=== PATIENT | male | born 1930 | race Caucasian/White ===

== ENCOUNTER 2018-07-19 12:41 | Inpatient (IN) ==
[2018-07-19] MEDS ORDERED: Pantoprazole Inj 40 MG Vial IV.PUSH ONE (13:15)
[2018-07-19 13:45] LABS: Eos % (Auto) 0.1 % (0.0-4.0); Hemoglobin 8.2 gm/dL (13.0-17.0); Lymph # (Auto) 1.1 th/mm3 (1.0-4.8); Lymph % (Auto) 5.1 % (9.0-44.0); Mean Corpuscular HGB Conc 32.9 % (32.0-36.0); Mean Corpuscular Volume 100.2 fL (80.0-100.0); Mean Platelet Volume 8.3 fL (7.0-11.0); Mono # (Auto) 1.4 th/mm3 (0.0-0.9); Mono % (Auto) 6.7 % (0.0-8.0); Neut % (Auto) 88.1 % (16.0-70.0); Platelet Count 206 th/mm3 (150-450); Red Blood Count 2.49 mil/mm3 (4.50-5.90); Red Cell Distribution Width 13.6 % (11.6-17.2); White Blood Count 20.5 th/mm3 (4.0-11.0)
--- NOTE | 2018-07-19 13:46 | CT ---
EXAM DATE: 07/19/2018 1:41 PM EDT AGE/SEX: 88 years / Male INDICATIONS: Vomiting blood blood in stool fall today CLINICAL DATA: This is the patient's initial encounter. Patient reports that signs and symptoms have been present for 1 day and indicates a pain score of 0/10. MEDICAL/SURGICAL HISTORY: . colitis None. RADIATION DOSE: 5.14 CTDI (mGy) COMPARISON: No prior exams available for comparison. TECHNIQUE: Multiple contiguous axial images were obtained through the abdomen. Images were obtained using multiple row detector helical technique. Using automated exposure control and adjustment of the mA and/or kV according to patient size, radiation dose was kept as low as reasonably achievable to o btain optimal diagnostic quality images. DICOM format image data is available electronically for rev iew and comparison. FINDINGS: Lower Lungs: The visualized lower lungs are clear. Liver: The liver has a homogeneous density without space-occupying lesion. There is no dilation of th e biliary tree. Spleen: Homogeneous density without enlargement. Pancreas: Unremarkable without mass or calcification. Kidneys: Normal in size and shape. No evidence of mass or hydronephrosis. Small stone mid pole left kidney. Adrenal Glands: Unremarkable. Aorta: The aorta and proximal iliac vessels are grossly unremarkable without aneurysmal dilation. A therosclerotic disease without aneurysm Bowel/Mesentery: Sigmoid diverticulosis without evidence of mass. Abdominal Wall: Intact. Retroperitoneum: No evidence of adenopathy in the retrocrural, para-aortic, or deep pelvic regions. Bladder: Contours are smooth. Reproductive Organs: No abnormal masses or calcifications seen. Inguinal: The inguinal region is unremarkable without evidence of adenopathy. Bony Structures: Unremarkable. CONCLUSION: 1. Sigmoid diverticulosis. No etiology for hematochezia identified. Electronically signed by: Juilo Cesar Still MD 07/19/2018 1:45 PM EDT
[2018-07-19] MEDS: Octreotide Inj 500 MCG in Sodium Chlor 0.9% Inj 500 ML IV.CONT SCH (13:52)
[2018-07-19] MEDS ORDERED: Ciprofloxacin 400 MG/200 ML 400 MG/200 ML PIGGYBACK IV.SIG ONE (13:53)
[2018-07-19 14:04] LABS: Activated Partial Thrombo Time 18.5 sec (24.3-30.1); Prothrombin Time 10.6 sec (9.8-11.6)
[2018-07-19 14:07] LABS: Alanine Aminotransferase 17 U/L (12-78); Albumin 2.6 g/dL (3.4-5.0); Anion Gap 11 meq/L (5-15); Aspartate Aminotransferase 19 U/L (15-37); Blood Urea Nitrogen 77 mg/dL (7-18); Calcium 7.6 mg/dL (8.5-10.1); Carbon Dioxide 22.5 meq/L (21.0-32.0); Chloride 111 meq/L (98-107); Glomerular Filtration Rate 37 mL/min (>89); Glucose,Random 124 mg/dL (74-106); Lipase 90 U/L (73-393); Magnesium 2.2 mg/dL (1.5-2.5); Potassium 4.8 meq/L (3.5-5.1); Sodium 144 meq/L (136-145)
[2018-07-19 14:12] LABS: Alkaline Phosphatase 43 U/L (45-117); Total Protein 5.3 g/dL (6.4-8.2); Troponin I 0.03 ng/mL (0.02-0.05)
--- NOTE | 2018-07-19 14:16 | XR ---
EXAM DATE: 07/19/2018 2:13 PM EDT AGE/SEX: 88 years / Male INDICATIONS: Blood in stool and vomiting blood today. CLINICAL DATA: This is the patient's initial encounter. Patient reports that signs and symptoms have been present for 1 day and indicates a pain score of 0/10. MEDICAL/SURGICAL HISTORY: None. Tonsillectomy. COMPARISON: No prior exams available for comparison. FINDINGS: Supine and upright views of the abdomen were performed. The abdominal bowel gas pattern is normal. No air-fluid levels are seen. No abnormal masses, calcifications, or organomegaly is seen. The visualiz ed lower lungs are clear. No evidence of free intraperitoneal gas. The osseous structures are unremar kable. Large osteophytes throughout the lumbar spine CONCLUSION: Unremarkable bowel gas pattern Electronically signed by: Julio Cesar Still MD 07/19/2018 2:14 PM EDT
[2018-07-19] MEDS ORDERED: Sod Chloride 0.9% Inj 1,000 ML IV.SIG SCH (16:30)
[2018-07-19] MEDS ORDERED: Sod Chloride 0.9% Inj 800 ML IV.SIG SCH (16:30)
--- NOTE | 2018-07-19 17:29 | XR ---
EXAM DATE: 07/19/2018 5:22 PM EDT AGE/SEX: 88 years / Male INDICATIONS: Syncope. Patient states he keeps passing out. CLINICAL DATA: This is the patient's initial encounter. Patient reports that signs and symptoms have been present for 3 days and indicates a pain score of 0/10. MEDICAL/SURGICAL HISTORY: . Skin cancer. None. COMPARISON: [facility], XR CHEST PA AND LAT, 10/14/2016. . FINDINGS: A single AP view of the chest demonstrates the lungs to be symmetrically aerated without evidence of mass, infiltrate or effusion. The cardiomediastinal contours are unremarkable. Osseous structures a re intact. CONCLUSION: Negative examination. Electronically signed by: Julio Cesar Still MD 07/19/2018 5:28 PM EDT
[2018-07-19] MEDS ORDERED: Pantoprazole Inj 80 MG in Sodium Chlor 0.9% Inj 35 ML IV.SIG ONE (17:30)
--- NOTE | 2018-07-19 17:30 | ED ---
HPI General Chief complaint: GI Bleed Stated complaint: GI Bleed Time Seen by Provider: 07/19/18 12:54 Source: patient, family, EMS and old records reviewed Mode of arrival: EMS Limitations: no limitations History of Present Illness HPI Narrative: The patient is an 88-year-old male that was found by his granddaughter at his house sitting covered in what appeared to be coffee-ground emesis as well as EMS reporting tarry stool throughout the house. Patient stated that he felt too weak to get up or call anybody. His granddaughter went home and found him sitting at home. she told EMS that he had several loose bowel movements and has no past medical history other than colitis for which he is on medications. No smoking no alcohol or drug abuse. EMS reported that initial blood pressure at the house was 80/52 to give him a liter of fluids and on arrival here in the ED was 113/55. MD complaint: coffee ground emesis Onset (ago): unknown Pain Consistency: now resolved Context: history of GI bleed Associated symptoms: nausea and vomiting Related Data Home Medications Medication Instructions Recorded Confirmed aspirin 81 mg PO DAILY 07/19/18 07/19/18 escitalopram oxalate 10 mg PO DAILY 07/19/18 07/19/18 mesalamine [Asacol HD] 800 mg PO WEEKLY 07/19/18 07/19/18 Allergies Allergy/AdvReac Type Severity Reaction Status Date / Time Sulfa (Sulfonamide Allergy Mild Weakness Verified 07/19/18 13:02 Antibiotics) Review of Systems ROS: all other systems reviewed are negative [facility] Social History Social History Substance History: No History of Abuse Second Hand Smoke Exposure: No Smoking Status: Former smoker Tobacco Type: Cigarettes How Often Do You Have a Drink Containing Alcohol: 4 or more times a week Recent Travel in [facility] within the Last 8 Weeks: No Recent Out of Country Travel within the Last 8 Weeks: No Immunization History Tetanus Immunization: <5 Years Exam Narrative Exam Narrative: GENERAL: Alert in no distress SKIN: Focused skin assessment warm/dry. Patient's head and face are covered with dried blood.. There is also dried blood on the patient's legs from diarrhea. HEAD: Atraumatic. Normocephalic. EYES: Pupils equal and round. No scleral icterus. No injection or drainage. ENT: No nasal bleeding or discharge. Mucous membranes pink and moist. NECK: Trachea midline. No JVD. CARDIOVASCULAR: Regular rate and rhythm. No murmur appreciated. RESPIRATORY: No accessory muscle use. Clear to auscultation. Breath sounds equal bilaterally. GASTROINTESTINAL: Abdomen soft, mild tenderness to palpation over the left lower quadrant. Nondistended. Hepatic and splenic margins not palpable. MUSCULOSKELETAL: No obvious deformities. No clubbing. No cyanosis. No edema. NEUROLOGICAL: Awake and alert. No obvious cranial nerve deficits. Motor grossly within normal limits. Normal speech. PSYCHIATRIC: Appropriate mood and affect; insight and judgment normal. Course Hospital Course: . Fluids were given per sepsis protocol. He had an elevated lactate and white count and a CT suggestive diverticulosis without infectious process however based on the patient's presentation and symptoms we decided to cover him with Cipro and Flagyl. He was typed and screened. His hemoglobin was stable on arrival. Patient arrival was obvious that he had both upper and lower GI emesis. She was alert and able to talk was not in distress. he was placed on octreotide drip and was given Protonix. Initial Documented Vital Signs Temperature 97.9 F 07/19/18 12:53 Pulse Rate 75 07/19/18 12:53 Respiratory Rate 17 07/19/18 12:53 Blood Pressure 133/55 L 07/19/18 12:53 Pulse Oximetry 94 L 07/19/18 12:53 Last Documented Vital Signs Temperature 97.9 F 07/19/18 12:53 Pulse Rate 82 07/19/18 16:55 Respiratory Rate 17 07/19/18 16:55 Blood Pressure 130/70 07/19/18 16:55 Pulse Oximetry 96 07/19/18 16:55 Critical Care Time Critical Care Time: Yes Total Critical Care Time: 45 Attestation: Aggregate critical care time was [-] minutes. Time to perform other separately billable procedures was not included in the critical care time. My time did not include minutes spent treating any other patients simultaneously or on activities that did not directly contribute to the patient's treatment. The services I provided to this patient were to treat and/or prevent clinically significant deterioration that could result in: Permanent disability and/or I provided critical care services requiring my management, as noted below: Chart data review, documentation time, medication orders and management, vital sign assessments/reviewing monitor data, ordering and reviewing lab tests, ordering and interpreting/reviewing x-rays and diagnostic studies, care of the patient and discussion of the patient with the admitting physicians. Medical Decision Making MDM Narrative Medical decision making narrative: Patient with leukocytosis of 20.5 or lactic acidosis of 2.6. He was covered sepsis protocol with IV antibiotics and fluids. He was given Cipro and Flagyl due to a reading of a possible diverticulosis without signs of diverticulitis however he had tenderness to palpation on the lower abdomen as well as hematochezia. We will give the patient 2 units of blood. He is hemodynamically stable. Alert and oriented. No focal deficits. AK I noted. She will be admitted to stepdown. Medical Screen Exam Complete: Yes Emergency Medical Condition: Yes Lab Data Result diagrams: 07/19/18 13:15 07/19/18 13:15 Lab Results 07/19/18 07/19/18 07/19/18 Range/Units 12:50 13:15 13:15 WBC 20.5 H (4.0-11.0) th/mm3 RBC 2.49 L (4.50-5.90) mil/mm3 Hgb 8.2 L (13.0-17.0) gm/dL Hct 25.0 L (39.0-51.0) % MCV 100.2 H (80.0-100.0) fL MCH 33.0 (27.0-34.0) pg MCHC 32.9 (32.0-36.0) % RDW 13.6 (11.6-17.2) % Plt Count 206 (150-450) th/mm3 MPV 8.3 (7.0-11.0) fL Neut % (Auto) 88.1 H (16.0-70.0) % Lymph % (Auto) 5.1 L (9.0-44.0) % [place] % (Auto) 6.7 (0.0-8.0) % Eos % (Auto) 0.1 (0.0-4.0) % Baso % (Auto) 0.0 (0.0-2.0) % Neut # (Auto) 18.0 H (1.8-7.7) th/mm3 Lymph # (Auto) 1.1 (1.0-4.8) th/mm3 [place] # (Auto) 1.4 H (0.0-0.9) th/mm3 Eos # (Auto) 0.0 (0.0-0.4) th/mm3 Baso # (Auto) 0.0 (0.0-0.2) th/mm3 WBC Differential . Differential Comment Auto diff final PT 10.6 (9.8-11.6) sec INR 1.0 Ratio APTT 18.5 L (24.3-30.1) sec Sodium (136-145) meq/L Potassium (3.5-5.1) meq/L Chloride (98-107) meq/L Carbon Dioxide (21.0-32.0) meq/L Anion Gap (5-15) meq/L BUN (7-18) mg/dL Creatinine (0.60-1.30) mg/dL Estimated GFR (>89) mL/min Random Glucose (74-106) mg/dL Lactic Acid (0.4-2.0) mmol/L Calcium (8.5-10.1) mg/dL Magnesium (1.5-2.5) mg/dL Total Bilirubin (0.2-1.0) mg/dL AST (15-37) U/L ALT (12-78) U/L Alkaline Phosphatase (45-117) U/L Troponin I (0.02-0.05) ng/mL Total Protein (6.4-8.2) g/dL Albumin (3.4-5.0) g/dL Lipase (73-393) U/L Urine Color (Yellw/Straw) Urine Clarity (Clear) Urine pH (5.0-8.5) Ur Specific [place] (1.002-1.035) Urine Protein (Neg-Trace) mg/dL Urine Glucose (UA) (Negative) mg/dL Urine Ketones (Negative) mg/dL Urine Occult Blood (Negative) Urine Nitrate (Negative) Urine Bilirubin (Negative) Urine Urobilinogen (Less than 2) mg/dL Ur Leukocyte Esterase (Negative) Urine RBC (0-3) /hpf Urine WBC (0-5) /hpf Ur Squamous Epith Cells (0-5) /hpf Hyaline Casts (0-3) /lpf Urine Mucus (Occasional) /lpf Micro UA Comment Ur Microscopic Review Urine Culture Comments Blood Type O Negative Blood Type Recheck Required Antibody Screen Negative 07/19/18 07/19/18 07/19/18 Range/Units 13:15 13:15 17:45 WBC (4.0-11.0) th/mm3 RBC (4.50-5.90) mil/mm3 Hgb (13.0-17.0) gm/dL Hct (39.0-51.0) % MCV (80.0-100.0) fL MCH (27.0-34.0) pg MCHC (32.0-36.0) % RDW (11.6-17.2) % Plt Count (150-450) th/mm3 MPV (7.0-11.0) fL Neut % (Auto) (16.0-70.0) % Lymph % (Auto) (9.0-44.0) % [place] % (Auto) (0.0-8.0) % Eos % (Auto) (0.0-4.0) % Baso % (Auto) (0.0-2.0) % Neut # (Auto) (1.8-7.7) th/mm3 Lymph # (Auto) (1.0-4.8) th/mm3 [place] # (Auto) (0.0-0.9) th/mm3 Eos # (Auto) (0.0-0.4) th/mm3 Baso # (Auto) (0.0-0.2) th/mm3 WBC Differential Differential Comment PT (9.8-11.6) sec INR Ratio APTT (24.3-30.1) sec Sodium 144 (136-145) meq/L Potassium 4.8 (3.5-5.1) meq/L Chloride 111 H (98-107) meq/L Carbon Dioxide 22.5 (21.0-32.0) meq/L Anion Gap 11 (5-15) meq/L BUN 77 H (7-18) mg/dL Creatinine 1.74 H (0.60-1.30) mg/dL Estimated GFR 37 L (>89) mL/min Random Glucose 124 H (74-106) mg/dL Lactic Acid 2.6 H (0.4-2.0) mmol/L Calcium 7.6 L (8.5-10.1) mg/dL Magnesium 2.2 (1.5-2.5) mg/dL Total Bilirubin 0.3 (0.2-1.0) mg/dL AST 19 (15-37) U/L ALT 17 (12-78) U/L Alkaline Phosphatase 43 L (45-117) U/L Troponin I 0.03 (0.02-0.05) ng/mL Total Protein 5.3 L (6.4-8.2) g/dL Albumin 2.6 L (3.4-5.0) g/dL Lipase 90 (73-393) U/L Urine Color Yellow (Yellw/Straw) Urine Clarity Hazy H (Clear) Urine pH 5.0 (5.0-8.5) Ur Specific [place] 1.018 (1.002-1.035) Urine Protein Negative (Neg-Trace) mg/dL Urine Glucose (UA) Negative (Negative) mg/dL Urine Ketones Negative (Negative) mg/dL Urine Occult Blood Small H (Negative) Urine Nitrate Negative (Negative) Urine Bilirubin Negative (Negative) Urine Urobilinogen Less than 2 (Less than 2) mg/dL Ur Leukocyte Esterase Negative (Negative) Urine RBC 1 (0-3) /hpf Urine WBC 2 (0-5) /hpf Ur Squamous Epith Cells <1 (0-5) /hpf Hyaline Casts 16 (0-3) /lpf Urine Mucus Few H (Occasional) /lpf Micro UA Comment Culture not ind Ur Microscopic Review Not Reportable Urine Culture Comments Culture not ind Blood Type Blood Type Recheck Antibody Screen Imaging Data Radiologist's impression: Abdomen X-Ray 07/19/18 13:15 CONCLUSION: Unremarkable bowel gas pattern Abdomen/Pelvis CT 07/19/18 13:15 CONCLUSION: 1. Sigmoid diverticulosis. No etiology for hematochezia identified. Chest X-Ray 07/19/18 17:01 CONCLUSION: Negative examination. Discharge Plan Physicians Team ED Provider: Jhon Frank Primary Care Provider: Sonya Agrawal Attending Provider: Darius eWlls Other Providers: Zbigniew Lane Rxs /Orders / Referrals /Forms Prescriptions: No Action aspirin 81 mg Tablet,Chewable 81 mg PO DAILY RF: 0 escitalopram oxalate 10 mg Tablet 10 mg PO DAILY RF: 0 mesalamine [Asacol HD] 800 mg Tablet,Delayed Release (Dr/Ec) 800 mg PO WEEKLY RF: 0 Discharge Interventions Interventions: Vital Signs Last Done: 07/19/18 16:55 Status ED Status: Admitted Patient
[2018-07-19] MEDS ORDERED: Ciprofloxacin 400 MG/200 ML 400 MG/200 ML PIGGYBACK IV.SIG SCH (17:45)
[2018-07-19] MEDS ORDERED: Sodium Chlor 0.9% Inj 250 ML IV.SIG SCH ×2 (18:00)
[2018-07-19 18:01] LABS: Bilirubin,Urine Negative (Negative); Clarity,Urine Hazy (Clear); Color,Urine Yellow (Yellw/Straw); Glucose,Urine (UA) Negative (Negative); Hyaline Casts,Urine 16 /lpf (0-3); Leukocyte Esterase,Urine Negative (Negative); Mucus,Urine Few /lpf (Occasional); Nitrite,Urine Negative (Negative); Specific Gravity,Urine 1.018 (1.002-1.035); Squamous Epithelial Cell,Urine <1 /hpf (0-5)
[2018-07-19] MEDS: Sod Chloride 0.9% Inj 1,000 ML IV.CONT SCH (18:24)
--- NOTE | 2018-07-19 18:42 | P.HP ---
History of Present Illness Primary Care Physician: Sonya Agrawal History of Present Illness: 88-year-old male with a history of macular degeneration and osteoarthritis presents to the hospital following upper and lower GI bleeding. This is the first hospitalization of his life. He reports that he went to bed yesterday at 8:30 PM and awoke at 10:30 PM feeling dizzy, when he got up he fell and vomited dark emesis. After a period of recovery he set up and went to sit on his chair where he had an episode of dark bloody diarrhea. He waited for his spell but due to his poor eyesight could not tell that the diarrhea was bloody. He felt dizzy and had a near syncopal episode then proceeded to vomit coffee-ground emesis again and had a syncopal episode. He then had an episode of bloody diarrhea for the second time. He attempted to call his daughter but accidentally left the phone off the hook. When his other daughter came by to check on the phone she found his dwelling to be smeared with bloody excrement vomit all over the place. She called 911 and he was taken to the emergency room. On admission his CBC shows a hemoglobin of 8.6 though after a rough night and poor hydration this is likely a contracted number. He still remains dizzy and somewhat short of breath following his blood loss overnight. His systolic blood pressure at his house was 80 but is up to 113 since arriving at the ER. He has had no significant blood loss since arriving. She denies any history of heart disease, denies chest pain, denies cough, denies fevers, denies dysuria. Inpatient Certification: I certify that the inpatient services were ordered in accordance with Medicare regulations governing the order. This includes certification that hospital inpatient services are reasonable and necessary and in the case of services not specified as inpatient-only under 42 CFR 419.22(n), that they are appropriately provided as inpatient services in accordance to with the 2-midnight benchmark under 43 CFR 412.3(e) Estimated Total Length of Stay (Days): 4 Plans for Post Hospital Care: Home Review of Systems All other systems reviewed negative except as stated in HPI PMFSH - History History Provided By: Patient, Guest Experience Manager / EMT - Medical / Surgical Hx Neg / Unobtainable Surgical History: No Previous Surgery - Medical History Medical History: Medical History (Last Updated 07/19/18 @ 18:31 by Darius Wells MD) Diverticulosis Macular degeneration Osteoarthritis - Family History Family History: Family History (Last Updated 07/19/18 @ 18:29 by Darius Wells MD) Other Hypertension - Tobacco History Second Hand Smoke Exposure: No Tobacco Use In Past 30 Days: No Smoking Status: Former smoker Tobacco Type: Cigarettes - Alcohol History How Often Do You Have a Drink Containing Alcohol: 4 or more times a week - Substance Use History Substance History: No History of Abuse - Travel History Recent Travel in the [place] Within the Last 8 Weeks: No Recent Travel Out of the Country Within the Last 8 Weeks: No - Immunization History Tetanus Immunization: <5 Years Medications and Allergies Active Medications: Active Medications Al Hydroxide/Mg Hydroxide (Milk Of Magnbijan Liq) 30 ml PO Q12H PRN PRN Reason: Mild Constipation Octreotide Acetate 500 mcg/ (Sodium Chloride) 500.5 mls @ 50.05 mls/hr IV.CONT .Q10H [facility]INA Last Admin: 07/19/18 13:52 Dose: 50 mcg/hr, 50.05 mls/hr Sodium Chloride (Ns Inj) 1,000 mls @ 0 mls/hr IV.SIG .Q0M RAINA Last Infusion: 07/19/18 17:59 Dose: Infused Sodium Chloride (Ns Inj) 800 mls @ 0 mls/hr IV.SIG .Q0M RAINA Last Infusion: 07/19/18 17:59 Dose: Infused Sodium Chloride (Ns Inj) 1,000 mls @ 100 mls/hr IV.CONT .Q10H [facility]INA Last Admin: 07/19/18 18:24 Dose: 100 mls/hr Sodium Chloride (Ns Inj) 250 mls @ 15 mls/hr IV.SIG ONCE RAINA Stop: 07/20/18 10:39 Pantoprazole Sodium 80 mg/ (Sodium Chloride) 35 mls @ 420 mls/hr IV.SIG BOLUS ONE Stop: 07/19/18 17:34 Sodium Chloride (Ns Inj) 250 mls @ 15 mls/hr IV.SIG ONCE RAINA Stop: 07/20/18 10:39 Metronidazole/Sodium Chloride (Flagyl 500 Mg Inj) 100 mls @ 100 mls/hr IV.SIG Q8H [facility]INA Last Admin: 07/19/18 18:01 Dose: Not Given Ciprofloxacin/Dextrose (Cipro 400 Mg/200 Ml Inj) 400 mg in 200 mls @ 200 mls/ hr IV.SIG Q8H [facility] Last Admin: 07/19/18 18:01 Dose: Not Given Ondansetron HCl (Zofran Inj) 4 mg IV.PUSH Q6H PRN PRN Reason: NAUSEA OR VOMITING Sodium Chloride (Ns Flush) 2 ml IV.FLUSH PRN PRN PRN Reason: FLUSH AFTER USING IV ACCESS Allergies Allergy/AdvReac Type Severity Reaction Status Date / Time Sulfa (Sulfonamide Allergy Mild Weakness Verified 07/19/18 13:02 Antibiotics) Home Medications Medication Instructions Recorded Confirmed Type aspirin 81 mg PO DAILY 07/19/18 07/19/18 History escitalopram oxalate 10 mg PO DAILY 07/19/18 07/19/18 History mesalamine [Asacol HD] 800 mg PO WEEKLY 07/19/18 07/19/18 History Exam Vital signs: Vital Signs 07/19/18 12:53 07/19/18 12:57 07/19/18 13:15 Temperature 97.9 F Pulse Rate 75 79 Respiratory Rate 17 17 Blood Pressure 133/55 L 133/55 L Pulse Oximetry 94 L 100 91 L 07/19/18 16:55 07/19/18 18:21 Temperature Pulse Rate 82 81 Respiratory Rate 17 17 Blood Pressure 130/70 129/63 Pulse Oximetry 96 96 Intake & Output 07/18/18 07/19/18 07/19/18 18:59 06:59 18:59 Intake Total 2099 Balance 2099 Weight 56.699 kg Intake: IV 2099 Cipro 400 MG/200 ML Inj 400 mg 200 / 200 In 200 ml @ 200 mls/hr IV.SIG ONCE ONE Rx#:[id number] NS Inj 800 ML @ Wide Open IV. 1800 / 1800 SIG .Q0M RAINA Rx#:[id number] Flagyl 500 MG Inj 100 ML @ 100 100 / 100 mls/hr IV.SIG ONCE ONE Rx#: [id number] Narrative: GENERAL: AAOx3, weak appearing, adequate nutrition, crusted blood over his goatee and face SKIN: Warm and dry, no rashes. HEAD: Atraumatic. Normocephalic. EYES: Pupils equal, light arc on bilateral eyes, crusty upper and lower lids bilaterally, reactive to light. No scleral icterus. No injection or drainage. ENT: Moist mucous membranes. Nonerythematous oropharynx. NECK: Trachea midline. No JVD. Thyroid size within normal limits. CARDIOVASCULAR: Regular rate and rhythm. No murmur, no gallops, no rubs. RESPIRATORY: Clear and equal to auscultation bilaterally. No crackles, no wheezes. No accessory muscle use. GASTROINTESTINAL: Abdomen soft, non-tender, nondistended, normal active bowel sounds. Hepatic and splenic margins not palpable. MUSCULOSKELETAL: Extremities without clubbing or cyanosis. No obvious deformities. No edema. NEUROLOGICAL: Awake and alert. No obvious cranial nerve deficits. Motor grossly within normal limits. No focal deficits. Five out of 5 muscle strength in the arms and legs. Normal speech. PSYCHIATRIC: Appropriate mood and affect; insight and judgment normal. Results - Labs CBC & Chem 7: 07/19/18 13:15 07/19/18 13:15 Labs: Laboratory Results - last 24 hr 07/19/18 07/19/18 07/19/18 12:50 13:15 13:15 WBC 20.5 H RBC 2.49 L Hgb 8.2 L Hct 25.0 L MCV 100.2 H MCH 33.0 MCHC 32.9 RDW 13.6 Plt Count 206 MPV 8.3 Neut % (Auto) 88.1 H Lymph % (Auto) 5.1 L Barnes % (Auto) 6.7 Eos % (Auto) 0.1 Baso % (Auto) 0.0 Neut # (Auto) 18.0 H Lymph # (Auto) 1.1 Barnes # (Auto) 1.4 H Eos # (Auto) 0.0 Baso # (Auto) 0.0 WBC Differential . Differential Comment Auto diff final PT 10.6 INR 1.0 APTT 18.5 L Sodium Potassium Chloride Carbon Dioxide Anion Gap BUN Creatinine Estimated GFR Random Glucose Lactic Acid Calcium Magnesium Total Bilirubin AST ALT Alkaline Phosphatase Troponin I Total Protein Albumin Lipase Urine Color Urine Clarity Urine pH Ur Specific [place] Urine Protein Urine Glucose (UA) Urine Ketones Urine Occult Blood Urine Nitrate Urine Bilirubin Urine Urobilinogen Ur Leukocyte Esterase Urine RBC Urine WBC Ur Squamous Epith Cells Hyaline Casts Urine Mucus Micro UA Comment Ur Microscopic Review Urine Culture Comments Blood Type O Negative Blood Type Recheck Required Antibody Screen Negative 07/19/18 07/19/18 07/19/18 13:15 13:15 17:45 WBC RBC Hgb Hct MCV MCH MCHC RDW Plt Count MPV Neut % (Auto) Lymph % (Auto) Barnes % (Auto) Eos % (Auto) Baso % (Auto) Neut # (Auto) Lymph # (Auto) Barnes # (Auto) Eos # (Auto) Baso # (Auto) WBC Differential Differential Comment PT INR APTT Sodium 144 Potassium 4.8 Chloride 111 H Carbon Dioxide 22.5 Anion Gap 11 BUN 77 H Creatinine 1.74 H Estimated GFR 37 L Random Glucose 124 H Lactic Acid 2.6 H Calcium 7.6 L Magnesium 2.2 Total Bilirubin 0.3 AST 19 ALT 17 Alkaline Phosphatase 43 L Troponin I 0.03 Total Protein 5.3 L Albumin 2.6 L Lipase 90 Urine Color Yellow Urine Clarity Hazy H Urine pH 5.0 Ur Specific [place] 1.018 Urine Protein Negative Urine Glucose (UA) Negative Urine Ketones Negative Urine Occult Blood Small H Urine Nitrate Negative Urine Bilirubin Negative Urine Urobilinogen Less than 2 Ur Leukocyte Esterase Negative Urine RBC 1 Urine WBC 2 Ur Squamous Epith Cells <1 Hyaline Casts 16 Urine Mucus Few H Micro UA Comment Culture not ind Ur Microscopic Review Not Reportable Urine Culture Comments Culture not ind Blood Type Blood Type Recheck Antibody Screen - Imaging Impressions Abdomen X-Ray 07/19/18 13:15 CONCLUSION: Unremarkable bowel gas pattern Abdomen/Pelvis CT 07/19/18 13:15 CONCLUSION: 1. Sigmoid diverticulosis. No etiology for hematochezia identified. Chest X-Ray 07/19/18 17:01 CONCLUSION: Negative examination. Caprini VTE Risk Assessment Caprini VTE Risk Assessment: Moderate/High Risk (score >= 2) Caprini Risk Assessment Model: Point Value = 1 Point Value = 2 Point Value = 3 Point Value = 5 Age 41-60 Minor surgery BMI > 25 kg/m2 Swollen legs Varicose veins or History of unexplained or recurrent spontaneous Oral contraceptives or hormone replacement Sepsis (< 1 month) Serious lung disease, including pneumonia (< 1 month) Abnormal pulmonary function Acute myocardial infarction Congestive heart failure (< 1 month) History of inflammatory bowel disease Medical patient at bed rest Age 61-74 Arthroscopic surgery Major open surgery (> 45 min) Laparoscopic surgery (> 45 min) Malignancy Confined to bed (> 72 hours) Immobilizing plaster cast Central venous access Age >= 75 History of VTE Family history of VTE Factor V Leiden Prothrombin [id number] Lupus anticoagulant Anticardiolipin antibodies Elevated serum homocysteine Heparin-induced thrombocytopenia Other congenital or acquired thrombophilia Stroke (< 1 month) Elective arthroplasty Hip, pelvis, or leg fracture Acute spinal cord injury (< 1 month) Prophylaxis Regimen: Total Risk Factor Score Risk Level Prophylaxis Regimen 0-1 Low Early ambulation 2 Moderate Order ONE of the following: *Sequential Compression Device (SCD) *Heparin 5000 units SQ BID 3-4 Higher Order ONE of the following medications: *Heparin 5000 units SQ TID *Enoxaparin/Lovenox 40 mg SQ daily (WT < 150 kg, CrCl > 30 mL/min) *Enoxaparin/Lovenox 30 mg SQ daily (WT < 150 kg, CrCl > 10-29 mL/min) *Enoxaparin/Lovenox 30 mg SQ BID (WT < 150 kg, CrCl > 30 mL/min) AND/OR *Sequential Compression Device (SCD) 5 or more Highest Order ONE of the following medications: *Heparin 5000 units SQ TID (Preferred with Epidurals) *Enoxaparin/Lovenox 40 mg SQ daily (WT < 150 kg, CrCl > 30 mL/min) *Enoxaparin/Lovenox 30 mg SQ daily (WT < 150 kg, CrCl > 10-29 mL/min) *Enoxaparin/Lovenox 30 mg SQ BID (WT < 150 kg, CrCl > 30 mL/min) AND *Sequential Compression Device (SCD) Assessment and Plan - Plan GI bleed, anemia Coffee-ground emesis with dark stools, most likely upper GI Patient is no longer actively bleeding, presented with hemoglobin of 8.6, likely much lower due to contraction and based on history of loss Type and cross and transfuse 2 units overnight Keep patient n.p.o. for likely scope IV Protonix Gastroenterology consult placed Conjunctivitis As a side issue patient complains of eyes being stuck together in the morning and a film-like haziness over his limited vision Tobramycin drops 4 times daily Leukocytosis Likely from contraction, rehydrate and follow trend, patient is not afebrile Lactic acidosis Patient lost half of his blood acutely, and his muscles are likely oxygen deprived, similar mechanism to sepsis, but I do not believe this is infectious Diverticulosis Given context of bleed and presence of leukocytosis patient was started on Flagyl and ciprofloxacin We will continue Flagyl and ciprofloxacin empirically until trends can be observed for lactic acidosis and leukocytosis DVT prophylaxis SCD hose, chemoprophylaxis held due to acute bleed
[2018-07-19] MEDS: Tobramycin 0.3% Opth Drops 5 ML Bottle EACH EYE SCH (22:48)
[2018-07-19] MEDS: Pantoprazole Inj 80 MG in Sodium Chlor 0.9% Inj 100 ML IV.CONT SCH (23:40)
[2018-07-20] MEDS: Octreotide Inj 500 MCG in Sodium Chlor 0.9% Inj 500 ML IV.CONT SCH ×2 (01:35→12:21)
[2018-07-20] MEDS: Ciprofloxacin 400 MG/200 ML 400 MG/200 ML PIGGYBACK IV.SIG SCH ×2 (02:00→12:25)
[2018-07-20] MEDS: Sod Chloride 0.9% Inj 1,000 ML IV.CONT SCH ×2 (03:28→15:33)
[2018-07-20] MEDS: Pantoprazole Inj 80 MG in Sodium Chlor 0.9% Inj 100 ML IV.CONT SCH (07:06)
[2018-07-20 07:33] LABS: Hematocrit 31.9 % (39.0-51.0); Mean Corpuscular HGB Conc 34.5 % (32.0-36.0); Mean Corpuscular Hemoglobin 32.2 pg (27.0-34.0); Mean Corpuscular Volume 93.2 fL (80.0-100.0); Platelet Count 153 th/mm3 (150-450); Red Blood Count 3.43 mil/mm3 (4.50-5.90); Red Cell Distribution Width 16.2 % (11.6-17.2); White Blood Count 6.9 th/mm3 (4.0-11.0)
[2018-07-20 08:00] LABS: Calcium 7.2 mg/dL (8.5-10.1); Carbon Dioxide 22.7 meq/L (21.0-32.0); Potassium 4.3 meq/L (3.5-5.1)
[2018-07-20 08:14] LABS: Total Protein 5.2 g/dL (6.4-8.2)
[2018-07-20] MEDS: Tobramycin 0.3% Opth Drops 5 ML Bottle EACH EYE SCH ×4 (08:30→20:23)
--- NOTE | 2018-07-20 09:24 | P.CONGI ---
History of Present Illness Consult date: 07/20/18 Consult reason: GI bleed, coffee-ground emesis, melena stools Chief complaint: GI Bleed, Sepsis, LARA, Diverticulosis History of Present Illness: This is a 88-year-old male who was in his usual state of health up until approximately 24-36 hours ago. Onset of symptoms was fatigue and weakness approximately 36 hours ago which led to melena stools and hematemesis approximately 24 hours ago patient states that he got up to go to the bathroom and felt very dizzy and had a syncopal episode. Patient denies any aggregating factors except for EtOH which is 2 beers a week. Relieving factors none before admission. Currently patient is being managed on Protonix and octreotide drips. He is awake and a fairly good historian. Patient denies any previous history of nausea vomiting, dyspepsia or dysphasia. No previous EGD has been done in the past. Patient states colonoscopy approximately 3 years ago but has had no follow-up and no issues since then. He denies any history of GI bleed. Patient denies any family history of colon cancer. Patient denies any history of diarrhea or constipation and states bowels usually move daily in the a.m. 1- 2 times after eating and drinking coffee. CT scan done on admission shows sigmoid diverticulosis but no obvious blood. Current labs on admission hemoglobin 8.2 now 11, PT/INR 1, bilirubin and LFTs are normal. Gastroenterology has been consulted to assist with this patient's upper GI bleeding and plan of care. Patient has no history of anticoagulation. abdominal x-rays done on admission show normal bowel gas pattern. <Connie Schrader - Last Filed: 07/20/18 09:24> Review of Systems All other systems reviewed negative except as stated in HPI <Connie Schrader - Last Filed: 07/20/18 09:24> PMFSH - History History Provided By: Patient, Cloud Architect / EMT - Medical History Medical History: Medical History (Last Updated 07/19/18 @ 18:31 by Darius Wells MD) Diverticulosis Macular degeneration Osteoarthritis - Family History Family History: Family History (Last Updated 07/19/18 @ 18:29 by Darius Wells MD) Other Hypertension - Tobacco History Second Hand Smoke Exposure: No Tobacco Use In Past 30 Days: No Smoking Status: Former smoker Tobacco Type: Cigarettes - Alcohol History How Often Do You Have a Drink Containing Alcohol: 4 or more times a week - Substance Use History Substance History: No History of Abuse - Travel History Recent Travel in the [place] Within the Last 8 Weeks: No Recent Travel Out of the Country Within the Last 8 Weeks: No - Immunization History Tetanus Immunization: <5 Years <Connie Schrader - Last Filed: 07/20/18 09:24> - Medical History Medical History: Medical History (Last Updated 07/19/18 @ 18:31 by Darius Wells MD) Diverticulosis Macular degeneration Osteoarthritis - Family History Family History: Family History (Last Updated 07/19/18 @ 18:29 by Darius Wells MD) Other Hypertension <Zbigniew Lane - Last Filed: 07/20/18 12:10> Medications and Allergies Active Medications: Active Medications Al Hydroxide/Mg Hydroxide (Milk Of Magnesia Liq) 30 ml PO Q12H PRN PRN Reason: Mild Constipation Octreotide Acetate 500 mcg/ (Sodium Chloride) 500.5 mls @ 50.05 mls/hr IV.CONT .Q10H [facility] Last Admin: 07/20/18 01:35 Dose: 50 mcg/hr, 50.05 mls/hr Sodium Chloride (Ns Inj) 1,000 mls @ 0 mls/hr IV.SIG .Q0M [facility] Last Infusion: 07/19/18 17:59 Dose: Infused Sodium Chloride (Ns Inj) 800 mls @ 0 mls/hr IV.SIG .Q0M [facility] Last Infusion: 07/19/18 17:59 Dose: Infused Sodium Chloride (Ns Inj) 1,000 mls @ 100 mls/hr IV.CONT .Q10H [facility] Last Admin: 07/20/18 03:28 Dose: 100 mls/hr Sodium Chloride (Ns Inj) 250 mls @ 15 mls/hr IV.SIG ONCE [facility] Stop: 07/20/18 10:39 Last Admin: 07/19/18 21:00 Dose: 15 mls/hr Sodium Chloride (Ns Inj) 250 mls @ 15 mls/hr IV.SIG ONCE [facility] Stop: 07/20/18 10:39 Last Admin: 07/19/18 22:13 Dose: Not Given Metronidazole/Sodium Chloride (Flagyl 500 Mg Inj) 100 mls @ 100 mls/hr IV.SIG Q8H [facility] Last Infusion: 07/20/18 01:26 Dose: Infused Ciprofloxacin/Dextrose (Cipro 400 Mg/200 Ml Inj) 400 mg in 200 mls @ 200 mls/ hr IV.SIG Q8H [facility] Last Infusion: 07/20/18 03:09 Dose: Infused Pantoprazole Sodium 80 mg/ (Sodium Chloride) 100 mls @ 10 mls/hr IV.CONT Q10H [facility] Last Admin: 07/20/18 07:06 Dose: Not Given Ondansetron HCl (Zofran Inj) 4 mg IV.PUSH Q6H PRN PRN Reason: NAUSEA OR VOMITING Sodium Chloride (Ns Flush) 2 ml IV.FLUSH PRN PRN PRN Reason: FLUSH AFTER USING IV ACCESS Tobramycin Sulfate (Tobrex 0.3% Drops) 1 drop EACH EYE QID [facility] Last Admin: 07/20/18 08:30 Dose: 1 drop <Connie Schrader M - Last Filed: 07/20/18 09:24> Active Medications: Active Medications Al Hydroxide/Mg Hydroxide (Milk Of Magnesia Liq) 30 ml PO Q12H PRN PRN Reason: Mild Constipation Octreotide Acetate 500 mcg/ (Sodium Chloride) 500.5 mls @ 50.05 mls/hr IV.CONT .Q10H [facility] Last Admin: 07/20/18 01:35 Dose: 50 mcg/hr, 50.05 mls/hr Sodium Chloride (Ns Inj) 1,000 mls @ 0 mls/hr IV.SIG .Q0M [facility] Last Infusion: 07/19/18 17:59 Dose: Infused Sodium Chloride (Ns Inj) 800 mls @ 0 mls/hr IV.SIG .Q0M [facility] Last Infusion: 07/19/18 17:59 Dose: Infused Sodium Chloride (Ns Inj) 1,000 mls @ 100 mls/hr IV.CONT .Q10H [facility] Last Admin: 07/20/18 03:28 Dose: 100 mls/hr Ciprofloxacin/Dextrose (Cipro 400 Mg/200 Ml Inj) 400 mg in 200 mls @ 200 mls/ hr IV.SIG Q12H [facility] Metronidazole/Sodium Chloride (Flagyl 500 Mg Inj) 100 mls @ 100 mls/hr IV.SIG Q8H [facility] Last Admin: 07/20/18 11:40 Dose: 100 mls/hr Ondansetron HCl (Zofran Inj) 4 mg IV.PUSH Q6H PRN PRN Reason: NAUSEA OR VOMITING Pantoprazole Sodium (Protonix Inj) 40 mg IV.PUSH Q12HR [facility] Sodium Chloride (Ns Flush) 2 ml IV.FLUSH PRN PRN PRN Reason: FLUSH AFTER USING IV ACCESS Tobramycin Sulfate (Tobrex 0.3% Drops) 1 drop EACH EYE QID [facility] Last Admin: 07/20/18 08:30 Dose: 1 drop <Zbigniew Lane E - Last Filed: 07/20/18 12:10> Allergies Allergy/AdvReac Type Severity Reaction Status Date / Time Sulfa (Sulfonamide Allergy Mild Weakness Verified 07/19/18 13:02 Antibiotics) Home Medications Medication Instructions Recorded Confirmed Type aspirin 81 mg PO DAILY 07/19/18 07/19/18 History escitalopram oxalate 10 mg PO DAILY 07/19/18 07/19/18 History mesalamine [Asacol HD] 800 mg PO WEEKLY 07/19/18 07/19/18 History Exam Vital signs: Vital Signs 07/19/18 12:53 07/19/18 12:57 07/19/18 13:15 Temperature 97.9 F Pulse Rate 75 79 Respiratory Rate 17 17 Blood Pressure 133/55 L 133/55 L Pulse Oximetry 94 L 100 91 L 07/19/18 16:55 07/19/18 18:21 07/19/18 19:16 Temperature Pulse Rate 82 81 Respiratory Rate 17 17 Blood Pressure 130/70 129/63 Pulse Oximetry 96 96 97 07/19/18 19:49 07/19/18 20:05 07/19/18 21:43 Temperature 99.0 F 99.1 F 98.3 F Pulse Rate 83 82 84 Respiratory Rate 16 16 18 Blood Pressure 113/54 L 112/82 125/82 Pulse Oximetry 97 97 07/19/18 21:58 07/19/18 22:11 07/19/18 23:00 Temperature 98.3 F 98.4 F Pulse Rate 84 84 79 Respiratory Rate 18 16 Blood Pressure 125/87 132/67 Pulse Oximetry 97 97 07/20/18 00:00 07/20/18 01:00 07/20/18 01:52 Temperature 98.8 F 98.6 F Pulse Rate 72 74 72 Respiratory Rate 16 18 Blood Pressure 124/72 118/60 Pulse Oximetry 95 97 07/20/18 02:00 07/20/18 03:00 07/20/18 04:00 Temperature 98.3 F Pulse Rate 75 69 84 Respiratory Rate 17 Blood Pressure 130/64 Pulse Oximetry 97 07/20/18 05:00 07/20/18 06:00 Temperature Pulse Rate 64 69 Respiratory Rate Blood Pressure Pulse Oximetry Intake & Output 07/19/18 07/20/18 07/20/18 18:59 06:59 18:59 Intake Total 2099 1840.5 / 1840.5 Output Total 450 / 450 Balance 2099 1390.5 / 1390.5 Weight 56.699 kg Intake: IV 2099 800.5 / 800.5 SandoSTATIN Inj 500 MCG In NS 500.5 / 500.5 Inj 500 ML @ 50 MCG/HR 50.05 mls/hr IV.CONT .Q10H [facility] Rx#: [id number] NS Inj 1,000 ML @ 100 mls/hr IV 0 / 0 .CONT .Q10H [facility] Rx#:[id number] Cipro 400 MG/200 ML Inj 400 mg 200 / 200 200 / 200 In 200 ml @ 200 mls/hr IV.SIG Q8H [facility] Rx#:[id number] NS Inj 800 ML @ Wide Open IV. 1800 / 1800 SIG .Q0M [facility] Rx#:[id number] Flagyl 500 MG Inj 100 ML @ 100 100 / 100 100 / 100 mls/hr IV.SIG Q8H [facility] Rx#: [id number] Oral 240 / 240 Intake (Blood Product) Amt 800 / 800 Rbc As-3 Leukoreduced Unit 400 / 400 [id number] Rbc As-3 Leukoreduced Unit 400 / 400 [id number] Output: Urine 450 / 450 Other: Date of Last Bowel Movement 07/19/18 - Constitutional mild distress - Routine HEENT Exam Head: Present: normocephalic, abrasion (Right synagogue) ENT: Present: mucous membranes dry - Routine Neck Exam Present: supple - Routine Respiratory Exam Present: accessory muscle use (Even, unlabored) - Routine Cardiovascular Exam Present: S1, S2 - Routine Abdominal Exam Present: soft, normoactive bowel sounds (No obvious tenderness with light palpation) - Routine Skin Exam Present: pallor <Broussard,Connie M - Last Filed: 07/20/18 09:24> Vital signs: Vital Signs 07/19/18 12:53 07/19/18 12:57 07/19/18 13:15 Temperature 97.9 F Pulse Rate 75 79 Respiratory Rate 17 17 Blood Pressure 133/55 L 133/55 L Pulse Oximetry 94 L 100 91 L 07/19/18 16:55 07/19/18 18:21 07/19/18 19:16 Temperature Pulse Rate 82 81 Respiratory Rate 17 17 Blood Pressure 130/70 129/63 Pulse Oximetry 96 96 97 07/19/18 19:49 07/19/18 20:05 07/19/18 21:43 Temperature 99.0 F 99.1 F 98.3 F Pulse Rate 83 82 84 Respiratory Rate 16 16 18 Blood Pressure 113/54 L 112/82 125/82 Pulse Oximetry 97 97 07/19/18 21:58 07/19/18 22:11 07/19/18 23:00 Temperature 98.3 F 98.4 F Pulse Rate 84 84 79 Respiratory Rate 18 16 Blood Pressure 125/87 132/67 Pulse Oximetry 97 97 07/20/18 00:00 07/20/18 01:00 07/20/18 01:52 Temperature 98.8 F 98.6 F Pulse Rate 72 74 72 Respiratory Rate 16 18 Blood Pressure 124/72 118/60 Pulse Oximetry 95 97 07/20/18 02:00 07/20/18 03:00 07/20/18 04:00 Temperature 98.3 F Pulse Rate 75 69 84 Respiratory Rate 17 Blood Pressure 130/64 Pulse Oximetry 97 07/20/18 05:00 07/20/18 06:00 07/20/18 07:00 Temperature Pulse Rate 64 69 62 Respiratory Rate Blood Pressure Pulse Oximetry 95 07/20/18 08:00 Temperature 98 F Pulse Rate 62 Respiratory Rate Blood Pressure 109/58 L Pulse Oximetry 95 Intake & Output 07/19/18 07/20/18 07/20/18 18:59 06:59 18:59 Intake Total 2099 1840.5 / 1840.5 Output Total 450 / 450 150 / 150 Balance 2099 1390.5 / 1390.5 -150 / -150 Weight 56.699 kg Intake: IV 2099 800.5 / 800.5 SandoSTATIN Inj 500 MCG In NS 500.5 / 500.5 Inj 500 ML @ 50 MCG/HR 50.05 mls/hr IV.CONT .Q10H [facility] Rx#: [id number] NS Inj 1,000 ML @ 100 mls/hr IV 0 / 0 .CONT .Q10H [facility] Rx#:[id number] Cipro 400 MG/200 ML Inj 400 mg 200 / 200 200 / 200 In 200 ml @ 200 mls/hr IV.SIG Q8H [facility] Rx#:[id number] NS Inj 800 ML @ Wide Open IV. 1800 / 1800 SIG .Q0M [facility] Rx#:[id number] Flagyl 500 MG Inj 100 ML @ 100 100 / 100 100 / 100 mls/hr IV.SIG Q8H [facility] Rx#: [id number] Oral 240 / 240 Intake (Blood Product) Amt 800 / 800 Rbc As-3 Leukoreduced Unit 400 / 400 [id number] Rbc As-3 Leukoreduced Unit 400 / 400 [id number] Output: Urine 450 / 450 150 / 150 Other: Date of Last Bowel Movement 07/19/18 07/19/[address] <Z[address]iew Lane E - Last Filed: 07/20/18 12:10> Results - Labs CBC & Chem 7: 07/20/18 07:16 07/20/18 07:16 Labs: Laboratory Results - last 24 hr 07/19/18 07/19/18 07/19/18 12:50 13:15 13:15 WBC 20.5 H RBC 2.49 L Hgb 8.2 L Hct 25.0 L MCV 100.2 H MCH 33.0 MCHC 32.9 RDW 13.6 Plt Count 206 MPV 8.3 Neut % (Auto) 88.1 H Lymph % (Auto) 5.1 L [place] % (Auto) 6.7 Eos % (Auto) 0.1 Baso % (Auto) 0.0 Neut # (Auto) 18.0 H Lymph # (Auto) 1.1 [place] # (Auto) 1.4 H Eos # (Auto) 0.0 Baso # (Auto) 0.0 WBC Differential . Differential Comment Auto diff final PT 10.6 INR 1.0 APTT 18.5 L Sodium Potassium Chloride Carbon Dioxide Anion Gap BUN Creatinine Estimated GFR Random Glucose Lactic Acid Calcium Prot Corrected Calcium Magnesium Total Bilirubin AST ALT Alkaline Phosphatase Troponin I Total Protein Albumin Lipase Urine Color Urine Clarity Urine pH Ur Specific [place] Urine Protein Urine Glucose (UA) Urine Ketones Urine Occult Blood Urine Nitrate Urine Bilirubin Urine Urobilinogen Ur Leukocyte Esterase Urine RBC Urine WBC Ur Squamous Epith Cells Hyaline Casts Urine Mucus Micro UA Comment Ur Microscopic Review Urine Culture Comments Blood Type O Negative Blood Type Recheck Required Antibody Screen Negative MTS Gel Crossmatch 07/19/18 07/19/18 07/19/18 13:15 13:15 17:45 WBC RBC Hgb Hct MCV MCH MCHC RDW Plt Count MPV Neut % (Auto) Lymph % (Auto) [place] % (Auto) Eos % (Auto) Baso % (Auto) Neut # (Auto) Lymph # (Auto) [place] # (Auto) Eos # (Auto) Baso # (Auto) WBC Differential Differential Comment PT INR APTT Sodium 144 Potassium 4.8 Chloride 111 H Carbon Dioxide 22.5 Anion Gap 11 BUN 77 H Creatinine 1.74 H Estimated GFR 37 L Random Glucose 124 H Lactic Acid 2.6 H Calcium 7.6 L Prot Corrected Calcium Magnesium 2.2 Total Bilirubin 0.3 AST 19 ALT 17 Alkaline Phosphatase 43 L Troponin I 0.03 Total Protein 5.3 L Albumin 2.6 L Lipase 90 Urine Color Yellow Urine Clarity Hazy H Urine pH 5.0 Ur Specific [place] 1.018 Urine Protein Negative Urine Glucose (UA) Negative Urine Ketones Negative Urine Occult Blood Small H Urine Nitrate Negative Urine Bilirubin Negative Urine Urobilinogen Less than 2 Ur Leukocyte Esterase Negative Urine RBC 1 Urine WBC 2 Ur Squamous Epith Cells <1 Hyaline Casts 16 Urine Mucus Few H Micro UA Comment Culture not ind Ur Microscopic Review Not Reportable Urine Culture Comments Culture not ind Blood Type Blood Type Recheck Antibody Screen MTS Gel Crossmatch 07/19/18 07/20/18 07/20/18 18:20 07:16 07:16 WBC 6.9 D RBC 3.43 L Hgb 11.0 L D Hct 31.9 L MCV 93.2 D MCH 32.2 MCHC 34.5 RDW 16.2 D Plt Count 153 MPV 8.0 Neut % (Auto) Lymph % (Auto) [place] % (Auto) Eos % (Auto) Baso % (Auto) Neut # (Auto) Lymph # (Auto) [place] # (Auto) Eos # (Auto) Baso # (Auto) WBC Differential Differential Comment PT INR APTT Sodium 147 H Potassium 4.3 Chloride 117 H Carbon Dioxide 22.7 Anion Gap 7 BUN 45 H Creatinine 1.14 Estimated GFR 61 L Random Glucose 152 H Lactic Acid Calcium 7.2 L* Prot Corrected Calcium 8.2 L Magnesium Total Bilirubin AST ALT Alkaline Phosphatase Troponin I Total Protein 5.2 L Albumin Lipase Urine Color Urine Clarity Urine pH Ur Specific [place] Urine Protein Urine Glucose (UA) Urine Ketones Urine Occult Blood Urine Nitrate Urine Bilirubin Urine Urobilinogen Ur Leukocyte Esterase Urine RBC Urine WBC Ur Squamous Epith Cells Hyaline Casts Urine Mucus Micro UA Comment Ur Microscopic Review Urine Culture Comments Blood Type Blood Type Recheck Antibody Screen MTS Gel Crossmatch See Detail 07/20/18 07:16 WBC RBC Hgb Hct MCV MCH MCHC RDW Plt Count MPV Neut % (Auto) Lymph % (Auto) [place] % (Auto) Eos % (Auto) Baso % (Auto) Neut # (Auto) Lymph # (Auto) [place] # (Auto) Eos # (Auto) Baso # (Auto) WBC Differential Differential Comment PT INR APTT Sodium Potassium Chloride Carbon Dioxide Anion Gap BUN Creatinine Estimated GFR Random Glucose Lactic Acid 1.3 Calcium Prot Corrected Calcium Magnesium Total Bilirubin AST ALT Alkaline Phosphatase Troponin I Total Protein Albumin Lipase Urine Color Urine Clarity Urine pH Ur Specific [place] Urine Protein Urine Glucose (UA) Urine Ketones Urine Occult Blood Urine Nitrate Urine Bilirubin Urine Urobilinogen Ur Leukocyte Esterase Urine RBC Urine WBC Ur Squamous Epith Cells Hyaline Casts Urine Mucus Micro UA Comment Ur Microscopic Review Urine Culture Comments Blood Type Blood Type Recheck Antibody Screen MTS Gel Crossmatch - Imaging Impressions Abdomen X-Ray 07/19/18 13:15 CONCLUSION: Unremarkable bowel gas pattern Abdomen/Pelvis CT 07/19/18 13:15 CONCLUSION: 1. Sigmoid diverticulosis. No etiology for hematochezia identified. Chest X-Ray 07/19/18 17:01 CONCLUSION: Negative examination. <Connie Schrader - Last Filed: 07/20/18 09:24> - Labs CBC & Chem 7: 07/20/18 07:16 07/20/18 07:16 Labs: Laboratory Results - last 24 hr 07/19/18 07/19/18 07/19/18 12:50 13:15 13:15 WBC 20.5 H RBC 2.49 L Hgb 8.2 L Hct 25.0 L MCV 100.2 H MCH 33.0 MCHC 32.9 RDW 13.6 Plt Count 206 MPV 8.3 Neut % (Auto) 88.1 H Lymph % (Auto) 5.1 L [place] % (Auto) 6.7 Eos % (Auto) 0.1 Baso % (Auto) 0.0 Neut # (Auto) 18.0 H Lymph # (Auto) 1.1 [place] # (Auto) 1.4 H Eos # (Auto) 0.0 Baso # (Auto) 0.0 WBC Differential . Differential Comment Auto diff final PT 10.6 INR 1.0 APTT 18.5 L Sodium Potassium Chloride Carbon Dioxide Anion Gap BUN Creatinine Estimated GFR Random Glucose Lactic Acid Calcium Prot Corrected Calcium Magnesium Total Bilirubin AST ALT Alkaline Phosphatase Troponin I Total Protein Albumin Lipase Urine Color Urine Clarity Urine pH Ur Specific [place] Urine Protein Urine Glucose (UA) Urine Ketones Urine Occult Blood Urine Nitrate Urine Bilirubin Urine Urobilinogen Ur Leukocyte Esterase Urine RBC Urine WBC Ur Squamous Epith Cells Hyaline Casts Urine Mucus Micro UA Comment Ur Microscopic Review Urine Culture Comments Blood Type O Negative Blood Type Recheck Required Antibody Screen Negative MTS Gel Crossmatch 07/19/18 07/19/18 07/19/18 13:15 13:15 17:45 WBC RBC Hgb Hct MCV MCH MCHC RDW Plt Count MPV Neut % (Auto) Lymph % (Auto) [place] % (Auto) Eos % (Auto) Baso % (Auto) Neut # (Auto) Lymph # (Auto) [place] # (Auto) Eos # (Auto) Baso # (Auto) WBC Differential Differential Comment PT INR APTT Sodium 144 Potassium 4.8 Chloride 111 H Carbon Dioxide 22.5 Anion Gap 11 BUN 77 H Creatinine 1.74 H Estimated GFR 37 L Random Glucose 124 H Lactic Acid 2.6 H Calcium 7.6 L Prot Corrected Calcium Magnesium 2.2 Total Bilirubin 0.3 AST 19 ALT 17 Alkaline Phosphatase 43 L Troponin I 0.03 Total Protein 5.3 L Albumin 2.6 L Lipase 90 Urine Color Yellow Urine Clarity Hazy H Urine pH 5.0 Ur Specific [place] 1.018 Urine Protein Negative Urine Glucose (UA) Negative Urine Ketones Negative Urine Occult Blood Small H Urine Nitrate Negative Urine Bilirubin Negative Urine Urobilinogen Less than 2 Ur Leukocyte Esterase Negative Urine RBC 1 Urine WBC 2 Ur Squamous Epith Cells <1 Hyaline Casts 16 Urine Mucus Few H Micro UA Comment Culture not ind Ur Microscopic Review Not Reportable Urine Culture Comments Culture not ind Blood Type Blood Type Recheck Antibody Screen MTS Gel Crossmatch 07/19/18 07/20/18 07/20/18 18:20 07:16 07:16 WBC 6.9 D RBC 3.43 L Hgb 11.0 L D Hct 31.9 L MCV 93.2 D MCH 32.2 MCHC 34.5 RDW 16.2 D Plt Count 153 MPV 8.0 Neut % (Auto) Lymph % (Auto) [place] % (Auto) Eos % (Auto) Baso % (Auto) Neut # (Auto) Lymph # (Auto) [place] # (Auto) Eos # (Auto) Baso # (Auto) WBC Differential Differential Comment PT INR APTT Sodium 147 H Potassium 4.3 Chloride 117 H Carbon Dioxide 22.7 Anion Gap 7 BUN 45 H Creatinine 1.14 Estimated GFR 61 L Random Glucose 152 H Lactic Acid Calcium 7.2 L* Prot Corrected Calcium 8.2 L Magnesium Total Bilirubin AST ALT Alkaline Phosphatase Troponin I Total Protein 5.2 L Albumin Lipase Urine Color Urine Clarity Urine pH Ur Specific [place] Urine Protein Urine Glucose (UA) Urine Ketones Urine Occult Blood Urine Nitrate Urine Bilirubin Urine Urobilinogen Ur Leukocyte Esterase Urine RBC Urine WBC Ur Squamous Epith Cells Hyaline Casts Urine Mucus Micro UA Comment Ur Microscopic Review Urine Culture Comments Blood Type Blood Type Recheck Antibody Screen MTS Gel Crossmatch See Detail 07/20/18 07:16 WBC RBC Hgb Hct MCV MCH MCHC RDW Plt Count MPV Neut % (Auto) Lymph % (Auto) [place] % (Auto) Eos % (Auto) Baso % (Auto) Neut # (Auto) Lymph # (Auto) [place] # (Auto) Eos # (Auto) Baso # (Auto) WBC Differential Differential Comment PT INR APTT Sodium Potassium Chloride Carbon Dioxide Anion Gap BUN Creatinine Estimated GFR Random Glucose Lactic Acid 1.3 Calcium Prot Corrected Calcium Magnesium Total Bilirubin AST ALT Alkaline Phosphatase Troponin I Total Protein Albumin Lipase Urine Color Urine Clarity Urine pH Ur Specific [place] Urine Protein Urine Glucose (UA) Urine Ketones Urine Occult Blood Urine Nitrate Urine Bilirubin Urine Urobilinogen Ur Leukocyte Esterase Urine RBC Urine WBC Ur Squamous Epith Cells Hyaline Casts Urine Mucus Micro UA Comment Ur Microscopic Review Urine Culture Comments Blood Type Blood Type Recheck Antibody Screen MTS Gel Crossmatch - Imaging Impressions Abdomen X-Ray 07/19/18 13:15 CONCLUSION: Unremarkable bowel gas pattern Abdomen/Pelvis CT 07/19/18 13:15 CONCLUSION: 1. Sigmoid diverticulosis. No etiology for hematochezia identified. Chest X-Ray 07/19/18 17:01 CONCLUSION: Negative examination. <Zbigniew Lane - Last Filed: 07/20/18 12:10> Assessment and Plan - Plan fatigue and weakness approximately 36 hours ago which led to melena stools and hematemesis approximately 24 hours ago patient states that he got up to go to the bathroom and felt very dizzy and had a syncopal episode. aggregating factors except for EtOH which is 2 beers a week. Relieving factors none before admission. Currently patient is being managed on Protonix and octreotide drips. He is awake and a fairly good historian. Patient denies any previous history of nausea vomiting, dyspepsia or dysphasia. No previous EGD has been done in the past. Patient states colonoscopy approximately 3 years ago but has had no follow-up and no issues since then. He denies any history of GI bleed. Patient denies any family history of colon cancer. Patient denies any history of diarrhea or constipation and states bowels usually move daily in the a.m. 1-2 times after eating and drinking coffee. Symptomatic anemia with syncopal episode, this is probably related to upper GI bleed, hemoglobin on admission 8.2 now [address] scan done on admission shows sigmoid diverticulosis but no obvious blood. Current labs on admission hemoglobin 8.2 now 11, PT/INR 1, bilirubin and LFTs are normal. Gastroenterology has been consulted to assist with this patient's upper GI bleeding and plan of care. Patient has no history of anticoagulation. abdominal x-rays done on admission show normal bowel gas pattern. Plan Diet n.p.o. for now Consent for EGD today scheduled with OR Continue octreotide and Protonix drips for now Bowel regimen as needed Monitor labs Supportive care Further recommendations to follow Patient was seen per myself and Dr. Lane, note was written on his behalf <Connie Schrader M - Last Filed: 07/20/18 09:24> - Plan Patient seen and examined Agree with above Continue with current supportive care Monitor labs We will proceed with an upper endoscopy next to further evaluate above symptoms further recommendations she will depend on findings <Zbigniew Lane - Last Filed: 07/20/18 12:10>
[2018-07-20] MEDS ORDERED: Pantoprazole Inj 40 MG Vial IV.PUSH SCH (11:00)
--- NOTE | 2018-07-20 13:01 | P.PCN ---
Date of procedure: 07/20/18 Pre-op diagnosis: Hematemesis, melena, dysphagia, nausea and vomiting, anemia Procedure: PROCEDURE PERFORMED EGD with biopsies PROCEDURE: The procedure, risks and benefits were discussed with Patient/POA and informed consent was obtained. Anesthesia sedated Patient with Diprivan. Patient was placed in the left lateral decubitus position. EGD: The Pentax videoscope was introduced through the oropharynx and advanced to the second portion of the duodenum under direct visualization. Retroflexion was performed in the stomach. FINDINGS: The esophagus this appeared to be unremarkable with normal limits The stomach there was a small hiatal hernia there was also patchy erythema noted in the antrum but no ulcerations and no erosions no blood or bleeding the rest of the stomach was unremarkable antral biopsies were taken for further evaluation The duodenum there was a small ulcer in the duodenal bulb clean based no visible vessel with some erythema and edema surrounding it the periphery was biopsied the rest of the duodenum was unremarkable ESTIMATED BLOOD LOSS: None SPECIMENS REMOVED: Gastric and duodenal biopsies COMPLICATIONS: None IMPRESSION: Hiatal hernia Gastritis Duodenal ulcer PLAN: Await biopsies Avoid NSAIDs and aspirin Protonix 40 mg daily Continue with current supportive care, monitor labs and transfuse as needed Follow-up with GI post discharge Advance diet as tolerated Anesthesia: MAC Surgeon: Zbigniew Lane Condition: stable Disposition: floor
--- NOTE | 2018-07-20 20:03 | ECG ---
Date Performed: 07/20/2018 Time Performed: 10:56:58 PTAGE: 88 years EKG: Sinus rhythm NORMAL ECG NO PREVIOUS TRACING DOCTOR: Basia Cardenas Interpretating Date/Time 07/20/2018 20:01:44
[2018-07-20] MEDS: Ciprofloxacin 500 MG Tablet PO SCH (20:23)
[2018-07-20] MEDS: metroNIDAZOLE 500 MG Tablet PO SCH (20:23)
[2018-07-20] MEDS ORDERED: Ciprofloxacin 400 MG/200 ML 400 MG/200 ML PIGGYBACK IV.SIG SCH (21:00)
--- NOTE | 2018-07-20 21:35 | P.PN ---
Subjective Interval history: Follow-up for upper GI bleed. Patient is doing well. No further episodes of coffee-ground emesis. He is scheduled for EGD today. No chest pain, shortness of breath, fever or chills. No abdominal pain. Physical Exam Vital signs: Vital Signs 07/19/18 21:43 07/19/18 21:58 07/19/18 22:11 Temperature 98.3 F 98.3 F 98.4 F Pulse Rate 84 84 84 Respiratory Rate 18 18 16 Blood Pressure 125/82 125/87 132/67 Pulse Oximetry 97 97 97 07/19/18 23:00 07/20/18 00:00 07/20/18 01:00 Temperature 98.8 F Pulse Rate 79 72 74 Respiratory Rate 16 Blood Pressure 124/72 Pulse Oximetry 95 07/20/18 01:52 07/20/18 02:00 07/20/18 03:00 Temperature 98.6 F Pulse Rate 72 75 69 Respiratory Rate 18 Blood Pressure 118/60 Pulse Oximetry 97 07/20/18 04:00 07/20/18 05:00 07/20/18 06:00 Temperature 98.3 F Pulse Rate 84 64 69 Respiratory Rate 17 Blood Pressure 130/64 Pulse Oximetry 97 07/20/18 07:00 07/20/18 08:00 07/20/18 09:00 Temperature 98 F Pulse Rate 62 60 56 L Respiratory Rate Blood Pressure 109/58 L Pulse Oximetry 95 95 07/20/18 10:00 07/20/18 11:00 07/20/18 12:00 Temperature Pulse Rate 60 60 62 Respiratory Rate Blood Pressure Pulse Oximetry 07/20/18 13:00 07/20/18 14:00 07/20/18 15:00 Temperature 97.6 F Pulse Rate 58 L 54 L 56 L Respiratory Rate Blood Pressure 108/55 L Pulse Oximetry 07/20/18 16:00 07/20/18 17:00 07/20/18 18:00 Temperature 98.1 F Pulse Rate 56 L 57 L 58 L Respiratory Rate 16 Blood Pressure 123/58 L Pulse Oximetry 97 07/20/18 18:04 07/20/18 19:00 07/20/18 20:00 Temperature 98.4 F Pulse Rate 55 L 58 L Respiratory Rate 18 Blood Pressure 124/79 Pulse Oximetry 97 95 Intake & Output 07/20/18 07/20/1818 06:59 18:59 06:59 Intake Total 1840.5 / 1840.5 2561.0 / 2561.0 Output Total 450 / 450 975 / 975 Balance 1390.5 / 1390.5 1586.0 / 1586.0 Intake: IV 800.5 / 800.5 1701.0 / 1701.0 SandoSTATIN Inj 500 MCG In NS 500.5 / 500.5 551.0 / 551.0 Inj 500 ML @ 50 MCG/HR 50.05 mls/hr IV.CONT .Q10H RA[facility] Rx#: [id number] Protonix Inj 80 MG In NS Inj 100 / 100 100 ML @ 10 mls/hr IV.CONT Q10H [facility] Rx#:[id number] NS Inj 1,000 ML @ 100 mls/hr IV 0 / 0 700 / 700 .CONT .Q10H RAINA Rx#:[id number] Cipro 400 MG/200 ML Inj 400 mg 200 / 200 In 200 ml @ 200 mls/hr IV.SIG Q8H RAINA Rx#:[id number] NS Inj 250 ML @ 15 mls/hr IV. 250 / 250 SIG ONCE RAINA Rx#:[id number] Flagyl 500 MG Inj 100 ML @ 100 100 / 100 100 / 100 mls/hr IV.SIG Q8H RAINA Rx#: [id number] Oral 240 / 240 560 / 560 Anesthesia Amount 300 / 300 Intake (Blood Product) Amt 800 / 800 Rbc As-3 Leukoreduced Unit 400 / 400 [id number] Rbc As-3 Leukoreduced Unit 400 / 400 [id number] Output: Urine 450 / 450 975 / 975 Other: Date of Last Bowel Movement 07/19/18 07/19/18 07/19/18 Narrative: GENERAL: Alert, oriented 3, NAD. SKIN: Warm and dry. HEAD: Normocephalic. EYES: No scleral icterus. No injection or drainage. NECK: Supple, trachea midline. No JVD or lymphadenopathy. CARDIOVASCULAR: Regular rate and rhythm without murmurs, gallops, or rubs. RESPIRATORY: Breath sounds equal bilaterally. No accessory muscle use. GASTROINTESTINAL: Abdomen soft, non-tender, nondistended. MUSCULOSKELETAL: No cyanosis, or edema. BACK: Nontender without obvious deformity. No CVA tenderness. Results - Labs CBC & Chem 7: 07/21/18 05:42 07/20/18 07:16 Laboratory Results - last 24 hr 07/19/18 07/20/18 07/20/18 18:20 07:16 07:16 WBC 6.9 D RBC 3.43 L Hgb 11.0 L D Hct 31.9 L MCV 93.2 D MCH 32.2 MCHC 34.5 RDW 16.2 D Plt Count 153 MPV 8.0 Sodium 147 H Potassium 4.3 Chloride 117 H Carbon Dioxide 22.7 Anion Gap 7 BUN 45 H Creatinine 1.14 Estimated GFR 61 L Random Glucose 152 H Lactic Acid Calcium 7.2 L* Prot Corrected Calcium 8.2 L Total Protein 5.2 L MTS Gel Crossmatch See Detail 07/20/18 07:16 WBC RBC Hgb Hct MCV MCH MCHC RDW Plt Count MPV Sodium Potassium Chloride Carbon Dioxide Anion Gap BUN Creatinine Estimated GFR Random Glucose Lactic Acid 1.3 Calcium Prot Corrected Calcium Total Protein MTS Gel Crossmatch Microbiology 07/19/18 13:20 Blood - Peripheral Aerobic Blood Culture - Preliminary No growth in 1 day 07/19/18 13:20 Blood - Peripheral Anaerobic Blood Culture - Preliminary No growth in 1 day 07/19/18 13:15 Blood - Peripheral Aerobic Blood Culture - Preliminary No growth in 1 day 07/19/18 13:15 Blood - Peripheral Anaerobic Blood Culture - Preliminary No growth in 1 day - Imaging Abdomen X-Ray 07/19/18 13:15 CONCLUSION: Unremarkable bowel gas pattern Abdomen/Pelvis CT 07/19/18 13:15 CONCLUSION: 1. Sigmoid diverticulosis. No etiology for hematochezia identified. Chest X-Ray 07/19/18 17:01 CONCLUSION: Negative examination. Assessment and Plan - Plan Anemia due to acute upper GI blood loss Coffee-ground emesis with dark stools, most likely upper GI Patient is no longer actively bleeding, presented with hemoglobin of 8.6, likely much lower due to contraction and based on history of loss Type and cross and transfuse 2 units upon admission. GI is following. EGD today. Cipro due to upper GI bleed. Conjunctivitis As a side issue patient complains of eyes being stuck together in the morning and a film-like haziness over his limited vision Tobramycin drops 4 times daily Leukocytosis Resolved. 20.5 --> 6.9. Lactic acidosis Lactic acid 2.6 --> 1.3. Likely due to acute blood loss. Diverticulosis Given context of bleed and presence of leukocytosis patient was started on Flagyl and ciprofloxacin We will continue Flagyl and ciprofloxacin empirically until trends can be observed for lactic acidosis and leukocytosis No sign of diverticulitis. We will likely discharge patient on Cipro alone.
[2018-07-21] MEDS: metroNIDAZOLE 500 MG Tablet PO SCH (04:42)
[2018-07-21 06:42] LABS: Hematocrit 28.4 % (39.0-51.0); Hemoglobin 9.6 gm/dL (13.0-17.0); Mean Corpuscular HGB Conc 33.9 % (32.0-36.0); Mean Corpuscular Hemoglobin 31.8 pg (27.0-34.0); Mean Corpuscular Volume 93.9 fL (80.0-100.0); Mean Platelet Volume 7.9 fL (7.0-11.0); Platelet Count 148 th/mm3 (150-450); Red Blood Count 3.03 mil/mm3 (4.50-5.90); Red Cell Distribution Width 16.3 % (11.6-17.2); White Blood Count 6.6 th/mm3 (4.0-11.0)
[2018-07-21 08:57] VITALS: BP 122/64; RESP 17; TEMP 98; O2SAT 97
[2018-07-21] MEDS: Ciprofloxacin 500 MG Tablet PO SCH (08:58)
[2018-07-21] MEDS: Tobramycin 0.3% Opth Drops 5 ML Bottle EACH EYE SCH (08:58)
--- NOTE | 2018-07-21 09:22 | P.DS ---
Date of admission: 07/19/18 17:58 Primary care physician: Sonya Agrawal Brief History from admission: 88-year-old male with a history of macular degeneration and osteoarthritis presents to the hospital following upper and lower GI bleeding. This is the first hospitalization of his life. He reports that he went to bed yesterday at 8:30 PM and awoke at 10:30 PM feeling dizzy, when he got up he fell and vomited dark emesis. After a period of recovery he set up and went to sit on his chair where he had an episode of dark bloody diarrhea. He waited for his spell but due to his poor eyesight could not tell that the diarrhea was bloody. He felt dizzy and had a near syncopal episode then proceeded to vomit coffee-ground emesis again and had a syncopal episode. He then had an episode of bloody diarrhea for the second time. He attempted to call his daughter but accidentally left the phone off the hook. When his other daughter came by to check on the phone she found his dwelling to be smeared with bloody excrement vomit all over the place. She called 911 and he was taken to the emergency room. On admission his CBC shows a hemoglobin of 8.6 though after a rough night and poor hydration this is likely a contracted number. He still remains dizzy and somewhat short of breath following his blood loss overnight. His systolic blood pressure at his house was 80 but is up to 113 since arriving at the ER. He has had no significant blood loss since arriving. She denies any history of heart disease, denies chest pain, denies cough, denies fevers, denies dysuria. DS: Medications - Discharge Medications Prescriptions: ciprofloxacin HCl 500 mg PO Q12HR #10 tab metronidazole [Flagyl] 500 mg PO TID #15 tab pantoprazole 40 mg PO DAILY #30 tab DS: Summary Hospital Course: Mr. Womack is a pleasant 88 year old male with a history of macular degeneration and osteoarthritis presents to the hospital following upper and lower GI bleeding. Upon admission CT abdomen pelvis shows diverticulosis but no diverticulitis. His WBC count was elevated to 20.5. He had a lactic acid level 2.6 R1.3. Patient was a started on octreotide, Protonix drip as well as ciprofloxacin and Flagyl. On the next day his leukocytosis resolved. Patient underwent EGD on 07/20/2018 which showed a small duodenal ulcer. GI recommended daily Protonix. Patient continued to do well. Due to leukocytosis and initial lactic acid level, would like to continue ciprofloxacin and Flagyl for 5 more days. Patient remains hemodynamically stable. He is tolerating diet well. We will discharge him home. - Time Spent with Patient Total time spent providing and/or coordinating discharge services: Greater than 30 minutes - Quality: VTE Deep Vein Thrombosis/Pulmonary Embolism Present on Admission: No Exam Vital signs: Vital Signs 07/20/18 10:00 07/20/18 11:00 07/20/18 12:00 Temperature Pulse Rate 60 60 62 Respiratory Rate Blood Pressure Pulse Oximetry 07/20/18 13:00 07/20/18 14:00 07/20/18 15:00 Temperature 97.6 F Pulse Rate 58 L 54 L 56 L Respiratory Rate Blood Pressure 108/55 L Pulse Oximetry 07/20/18 16:00 07/20/18 17:00 07/20/18 18:00 Temperature 98.1 F Pulse Rate 56 L 57 L 58 L Respiratory Rate 16 Blood Pressure 123/58 L Pulse Oximetry 97 07/20/18 18:04 07/20/18 19:00 07/20/18 20:00 Temperature 98.4 F Pulse Rate 55 L 54 L Respiratory Rate 18 Blood Pressure 124/79 Pulse Oximetry 97 95 07/20/18 21:00 07/20/18 22:00 07/20/18 23:00 Temperature Pulse Rate 54 L 54 L 60 Respiratory Rate Blood Pressure Pulse Oximetry 07/21/18 00:00 07/21/18 01:00 07/21/18 02:00 Temperature 97.4 F L Pulse Rate 55 L 50 L 50 L Respiratory Rate 20 Blood Pressure 97/67 L Pulse Oximetry 96 07/21/18 03:00 07/21/18 04:00 07/21/18 05:00 Temperature 98.6 F Pulse Rate 53 L 46 L 52 L Respiratory Rate 18 Blood Pressure 106/47 L Pulse Oximetry 94 L 07/21/18 06:00 07/21/18 07:00 07/21/18 07:26 Temperature Pulse Rate 45 L 69 Respiratory Rate Blood Pressure Pulse Oximetry 98 07/21/18 08:22 07/21/18 08:55 Temperature 98 F Pulse Rate 50 L Respiratory Rate 17 Blood Pressure 122/64 Pulse Oximetry 98 97 Intake & Output 07/20/18 07/21/18 07/21/18 18:59 06:59 18:59 Intake Total 2561.0 / 2561.0 300 / 300 Output Total 975 / 975 Balance 1586.0 / 1586.0 300 / 300 Weight 56.7 kg Intake: IV 1701.0 / 1701.0 SandoSTATIN Inj 500 MCG In NS 551.0 / 551.0 Inj 500 ML @ 50 MCG/HR 50.05 mls/hr IV.CONT .Q10H [facility] Rx#: [id number] Protonix Inj 80 MG In NS Inj 100 / 100 100 ML @ 10 mls/hr IV.CONT Q10H [facility] Rx#:[id number] NS Inj 1,000 ML @ 100 mls/hr IV 700 / 700 .CONT .Q10H RAINA Rx#:[id number] NS Inj 250 ML @ 15 mls/hr IV. 250 / 250 SIG ONCE RAINA Rx#:[id number] Flagyl 500 MG Inj 100 ML @ 100 100 / 100 mls/hr IV.SIG Q8H RA[facility] Rx#: [id number] Oral 560 / 560 300 / 300 Anesthesia Amount 300 / 300 Output: Urine 975 / 975 Other: # Voids 3 Date of Last Bowel Movement 07/19/18 07/19/18 07/21/18 Narrative: GENERAL: Alert, oriented 3, NAD. SKIN: Warm and dry. HEAD: Normocephalic. EYES: No scleral icterus. No injection or drainage. NECK: Supple, trachea midline. No JVD or lymphadenopathy. CARDIOVASCULAR: Regular rate and rhythm without murmurs, gallops, or rubs. RESPIRATORY: Breath sounds equal bilaterally. No accessory muscle use. GASTROINTESTINAL: Abdomen soft, non-tender, nondistended. MUSCULOSKELETAL: No cyanosis, or edema. BACK: Nontender without obvious deformity. No CVA tenderness. Results Procedures completed during hospitalization: EGD The esophagus this appeared to be unremarkable with normal limits The stomach there was a small hiatal hernia there was also patchy erythema noted in the antrum but no ulcerations and no erosions no blood or bleeding the rest of the stomach was unremarkable antral biopsies were taken for further evaluation The duodenum there was a small ulcer in the duodenal bulb clean based no visible vessel with some erythema and edema surrounding it the periphery was biopsied the rest of the duodenum was unremarkable IMPRESSION: Hiatal hernia Gastritis Duodenal ulcer PLAN: Await biopsies Avoid NSAIDs and aspirin Protonix 40 mg daily Continue with current supportive care, monitor labs and transfuse as needed Follow-up with GI post discharge Advance diet as tolerated Pending studies at discharge: Pending at discharge 07/20/18 16:48 Surgical [PTH] Routine Labs on day of discharge: Labs from last 24 hours 07/21/18 05:42 WBC 6.6 RBC 3.03 L Hgb 9.6 L Hct 28.4 L MCV 93.9 MCH 31.8 MCHC 33.9 RDW 16.3 Plt Count 148 L MPV 7.9 Preliminary micro results at discharge 07/19/18 13:20 Aerobic Blood Culture - Preliminary Blood - Peripheral No growth in 1 day Anaerobic Blood Culture - Preliminary No growth in 1 day 07/19/18 13:15 Aerobic Blood Culture - Preliminary Blood - Peripheral No growth in 1 day Anaerobic Blood Culture - Preliminary No growth in 1 day - Impressions ITS Impressions Abdomen X-Ray 07/19/18 13:15 CONCLUSION: Unremarkable bowel gas pattern Abdomen/Pelvis CT 07/19/18 13:15 CONCLUSION: 1. Sigmoid diverticulosis. No etiology for hematochezia identified. Chest X-Ray 07/19/18 17:01 CONCLUSION: Negative examination. Discharge Plan - Discharge Disposition Patient Disposition: Discharge Home - Discharge Condition Condition: Fair - Discharge Order Discharge Orders: Discharge Order (Routine); Ordered 07/21/18 Ordered By: Lukas Nolasco - Discharge Details Anticipated Discharge Date: 07/21/18 - Physicians Team Primary Care Provider: Sonya Agrawal Attending Provider: Lukas Nolasco Other Providers: Zbigniew Lane MD ; Joel Maldonado
--- NOTE | 2018-07-21 09:23 | P.PNGI ---
Subjective Interval history: pt is getting dressed, going home, denies any more bleeding or GI issues <Adarsh Melgoza - Last Filed: 07/21/18 09:17> Physical Exam Vital signs: Vital Signs 07/20/18 10:00 07/20/18 11:00 07/20/18 12:00 Temperature Pulse Rate 60 60 62 Respiratory Rate Blood Pressure Pulse Oximetry 07/20/18 13:00 07/20/18 14:00 07/20/18 15:00 Temperature 97.6 F Pulse Rate 58 L 54 L 56 L Respiratory Rate Blood Pressure 108/55 L Pulse Oximetry 07/20/18 16:00 07/20/18 17:00 07/20/18 18:00 Temperature 98.1 F Pulse Rate 56 L 57 L 58 L Respiratory Rate 16 Blood Pressure 123/58 L Pulse Oximetry 97 07/20/18 18:04 07/20/18 19:00 07/20/18 20:00 Temperature 98.4 F Pulse Rate 55 L 54 L Respiratory Rate 18 Blood Pressure 124/79 Pulse Oximetry 97 95 07/20/18 21:00 07/20/18 22:00 07/20/18 23:00 Temperature Pulse Rate 54 L 54 L 60 Respiratory Rate Blood Pressure Pulse Oximetry 07/21/18 00:00 07/21/18 01:00 07/21/18 02:00 Temperature 97.4 F L Pulse Rate 55 L 50 L 50 L Respiratory Rate 20 Blood Pressure 97/67 L Pulse Oximetry 96 07/21/18 03:00 07/21/18 04:00 07/21/18 05:00 Temperature 98.6 F Pulse Rate 53 L 46 L 52 L Respiratory Rate 18 Blood Pressure 106/47 L Pulse Oximetry 94 L 07/21/18 06:00 07/21/18 07:00 07/21/18 07:26 Temperature Pulse Rate 45 L 69 Respiratory Rate Blood Pressure Pulse Oximetry 98 07/21/18 08:22 07/21/18 08:55 Temperature 98 F Pulse Rate 50 L Respiratory Rate 17 Blood Pressure 122/64 Pulse Oximetry 98 97 Intake & Output 07/20/18 07/21/18 07/21/18 18:59 06:59 18:59 Intake Total 2561.0 / 2561.0 300 / 300 Output Total 975 / 975 Balance 1586.0 / 1586.0 300 / 300 Weight 56.7 kg Intake: IV 1701.0 / 1701.0 SandoSTATIN Inj 500 MCG In NS 551.0 / 551.0 Inj 500 ML @ 50 MCG/HR 50.05 mls/hr IV.CONT .Q10H [facility] Rx#: [id number] Protonix Inj 80 MG In NS Inj 100 / 100 100 ML @ 10 mls/hr IV.CONT Q10H [facility] Rx#:[id number] NS Inj 1,000 ML @ 100 mls/hr IV 700 / 700 .CONT .Q10H RAINA Rx#:[id number] NS Inj 250 ML @ 15 mls/hr IV. 250 / 250 SIG ONCE RAINA Rx#:[id number] Flagyl 500 MG Inj 100 ML @ 100 100 / 100 mls/hr IV.SIG Q8H RAINA Rx#: [id number] Oral 560 / 560 300 / 300 Anesthesia Amount 300 / 300 Output: Urine 975 / 975 Other: # Voids 3 Date of Last Bowel Movement 07/19/18 07/19/18 07/21/18 Narrative: GENERAL: Alert, oriented 3, no acute distress SKIN: Warm and dry. HEAD: Normocephalic. NECK: Supple, trachea midline. No JVD or lymphadenopathy. CARDIOVASCULAR: Regular rate and rhythm without murmurs, gallops, or rubs. RESPIRATORY: Breath sounds equal bilaterally. No accessory muscle use. GASTROINTESTINAL: Abdomen soft, non-tender, nondistended. MUSCULOSKELETAL: No cyanosis, or edema. <Adarsh Melgoza - Last Filed: 07/21/18 09:17> Vital signs: Vital Signs 07/20/18 20:00 07/20/18 21:00 07/20/18 22:00 Temperature 98.4 F Pulse Rate 54 L 54 L 54 L Respiratory Rate 18 Blood Pressure 124/79 Pulse Oximetry 95 07/20/18 23:00 07/21/18 00:00 07/21/18 01:00 Temperature 97.4 F L Pulse Rate 60 55 L 50 L Respiratory Rate 20 Blood Pressure 97/67 L Pulse Oximetry 96 07/21/18 02:00 07/21/18 03:00 07/21/18 04:00 Temperature 98.6 F Pulse Rate 50 L 53 L 46 L Respiratory Rate 18 Blood Pressure 106/47 L Pulse Oximetry 94 L 07/21/18 05:00 07/21/18 06:00 07/21/18 07:00 Temperature Pulse Rate 52 L 45 L 69 Respiratory Rate Blood Pressure Pulse Oximetry 07/21/18 07:26 07/21/18 08:00 07/21/18 08:22 Temperature Pulse Rate 48 L Respiratory Rate Blood Pressure Pulse Oximetry 98 98 07/21/18 08:55 07/21/18 09:00 Temperature 98 F Pulse Rate 50 L 52 L Respiratory Rate 17 Blood Pressure 122/64 Pulse Oximetry 97 Intake & Output 07/21/18 07/21/18 07/22/18 06:59 18:59 06:59 Intake Total 300 / 300 240 / 240 Output Total 400 / 400 Balance 300 / 300 -160 / -160 Weight 56.7 kg Intake: Oral 300 / 300 240 / 240 Output: Urine 400 / 400 Other: # Voids 3 Date of Last Bowel Movement 07/19/18 07/21/18 <Zbigniew Lane - Last Filed: 07/21/18 19:24> Results - Labs CBC & Chem 7: 07/21/18 05:42 07/20/18 07:16 Laboratory Results - last 24 hr 07/21/18 05:42 WBC 6.6 RBC 3.03 L Hgb 9.6 L Hct 28.4 L MCV 93.9 MCH 31.8 MCHC 33.9 RDW 16.3 Plt Count 148 L MPV 7.9 Microbiology 07/19/18 13:20 Blood - Peripheral Aerobic Blood Culture - Preliminary No growth in 1 day 07/19/18 13:20 Blood - Peripheral Anaerobic Blood Culture - Preliminary No growth in 1 day 07/19/18 13:15 Blood - Peripheral Aerobic Blood Culture - Preliminary No growth in 1 day 07/19/18 13:15 Blood - Peripheral Anaerobic Blood Culture - Preliminary No growth in 1 day - Imaging Abdomen X-Ray 07/19/18 13:15 CONCLUSION: Unremarkable bowel gas pattern Abdomen/Pelvis CT 07/19/18 13:15 CONCLUSION: 1. Sigmoid diverticulosis. No etiology for hematochezia identified. Chest X-Ray 07/19/18 17:01 CONCLUSION: Negative examination. <Adarsh Melgoza - Last Filed: 07/21/18 09:17> - Labs CBC & Chem 7: 07/21/18 05:42 07/20/18 07:16 Laboratory Results - last 24 hr 07/21/18 05:42 WBC 6.6 RBC 3.03 L Hgb 9.6 L Hct 28.4 L MCV 93.9 MCH 31.8 MCHC 33.9 RDW 16.3 Plt Count 148 L MPV 7.9 Microbiology 07/19/18 13:20 Blood - Peripheral Aerobic Blood Culture - Preliminary No growth in 2 days 07/19/18 13:20 Blood - Peripheral Anaerobic Blood Culture - Preliminary No growth in 2 days 07/19/18 13:15 Blood - Peripheral Aerobic Blood Culture - Preliminary No growth in 2 days 07/19/18 13:15 Blood - Peripheral Anaerobic Blood Culture - Preliminary No growth in 2 days <Zbigniew Lane - Last Filed: 07/21/18 19:24> Assessment and Plan - Plan Upper GI bleed, Coffee-ground emesis with dark stools, anemia He received 2 units of blood. hgb today is 9.6 No more bleeding S/P EGD on 07/20/18---> Hiatal hernia, Gastritis, Duodenal ulcer but clean base and non bleeding Abdomen/Pelvis CT 07/19/18 Sigmoid diverticulosis. No etiology for hematochezia identified. Leukocytosis/Lactic acidosis Resolved PLAN: Await biopsies Avoid NSAIDs and aspirin Protonix 40 mg daily Follow-up with GI post discharge Pt seen and examined by Dr. Lane and myself and this note is written on his behalf. <Adarsh Melgoza - Last Filed: 07/21/18 09:17> - Plan Patient seen and examined Agree with above Continue with current supportive care Monitor labs <Zbigniew Lane - Last Filed: 07/21/18 19:24>
[2018-07-21 10:06] VITALS: PULSE 52
== END 2018-07-21 12:15 | disposition home or self-care (01) ==
LOC: NEPC 12:41 → NEDA 17:58 → HCIS 21:23
PROVIDERS: ADMIT Hospitalist; ATTEND Hospitalist
PROC: PANENDO (2018-07-20 12:30)